=== PATIENT | male | born 2000 | race Caucasian/White ===

== ENCOUNTER 2021-01-13 21:17 | Emergency (ER) | payer OTHER ==
[~2021-01-13] VITALS: Ht 177.8 cm; Wt 73.5 kg
--- NOTE | 2021-01-13 21:20 | NUR ---
BIBS FOR C/O ALLERGIC REACTION. PT REPORTED HE IS ALLERGIC TO SESAME SEED AND HE HAD SOME TEHINA ABOUT AN HOUR AGO. CURRENTLY WITH C/O ITCHY THROAT, ABDOMINAL DISCOMFORT AND DIARRHEA. NO SOB. 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 PT AMBULATORY TO BED 1, WAS PLACED ON A MONITOR . VSS. WILL CONT TO MONITOR ,
[2021-01-13] MEDS ORDERED: diphenhydrAMINE HCL 50 MG/ML VIAL ONE (21:24)
[2021-01-13] MEDS ORDERED: FAMOTIDINE/PF INJ 20 MG/2 ML VIAL IV ONE ×2 (21:24→21:30)
[2021-01-13] MEDS ORDERED: methylPREDNISolone SOD SUCC 125 MG/2ML VIAL ONE (21:24)
[2021-01-13] MEDS ORDERED: ONDANSETRON HCL/PF 4 MG/2 ML VIAL ONE (21:24)
[2021-01-13] MEDS ORDERED: EPINEPHRINE (1:1000) 1 MG/ML AMPUL ONE (21:27)
[2021-01-13] MEDS ORDERED: ONDANSETRON HCL/PF 4 MG/2 ML VIAL IVP ONE (21:30)
[2021-01-13] MEDS ORDERED: methylPREDNISolone SOD SUCC 125 MG/2ML VIAL IV ONE (21:30)
[2021-01-13] MEDS ORDERED: EPINEPHRINE (1:1000) MDV 30 MG/30ML VIAL SUBCUT ONE (21:30)
[2021-01-13] MEDS ORDERED: diphenhydrAMINE HCL 50 MG/ML VIAL IV ONE (21:30)
[2021-01-13] MEDS ORDERED: PRED20TA PO (22:40)
[2021-01-13] MEDS ORDERED: DIPH50CA4 PO (22:40)
[2021-01-13] MEDS ORDERED: EPIN0.3P3 IJ (22:40)
--- NOTE | 2021-01-13 23:16 | NUR ---
IV removed. Catheter intact and site benign. Pressure and 4x4 applied to site. No bleeding noted.
--- NOTE | 2021-01-13 23:17 | NUR ---
Patient discharged to home in stable condition. Written and verbal after care instructions given. Patient verbalizes understanding of instruction.
[2021-01-14 00:03] VITALS: BP 132/73
== END 2021-01-13 23:22 | disposition home or self-care (01) ==
LOC: ER 21:19
DX: T78.09XA Anaphylactic reaction due to other food products, initial encounter (principal); Z90.89 Acquired absence of other organs; Z91.018 Allergy to other foods; Z79.899 Other long term (current) drug therapy
CPT/HCPCS: 96372; 96374; 96375; 99285; J0171 ×2; J1200; J2405; J2930; J3490